=== PATIENT | female | born 1965 | race Caucasian/White ===

== ENCOUNTER → 2018-03-26 15:25 | Outpatient (CLI) | payer OTHER, SELFPAY ==
[2018-03-26 18:30] LABS: TSH (W/Ref FT4) 2.03 uIU/mL (0.358-3.74)
== END ==
PROVIDERS: PCP Family Medicine; Visit Provider Family Medicine
DX: R63.5 Abnormal weight gain (principal); R63.8 Other symptoms and signs concerning food and fluid intake
CPT/HCPCS: 36415; 84443

== ENCOUNTER 2018-05-13 15:52 | Outpatient (REF) | payer OTHER, SELFPAY ==
--- NOTE | 2018-05-13 15:00 | PAPFT_PTH ---
PATIENT: Vannesa Macias LOC: N U#:[id number] AGE/SX: 53/F ROOM: RE05/13/[address]: MICHAEL Salcedo : 1965 BED: DIS: 05/13/2018 SPEC #: [id number] RECD: 05/13/18 17:58 STATUS: KIMI RELola #: [id number] WILFREDO: 05/13/18 15:[address]: Tiana Cantu DEPT: [facility] Cytology RECD BY: Winnie Herr ENTERED: 05/13/18 17:58 SP TYPE: PAPFT JUAN RAMON DR: Randall Milligan MD Tissues: 1 - CX/ENDOCX FOR PAP SMEARS Procedures: PAP THIN PREP/UVM Screening HPV DNA PROBE Comments: [id number]
== END 2018-05-13 16:12 ==
LOC: LBN 15:52
PROVIDERS: PCP Family Medicine; Visit Provider Nurse Practitioner Family
DX: Z12.4 Encounter for screening for malignant neoplasm of cervix (principal); Z11.51 Encounter for screening for human papillomavirus (HPV)
CPT/HCPCS: 88142; 87624

== ENCOUNTER 2019-08-04 19:50 | Outpatient (REF) | payer OTHER, SELFPAY | END 2019-08-04 20:10 | LOC: LBN 19:50 | PROVIDERS: PCP Family Medicine; Visit Provider Nurse Practitioner | DX: R10.9 Unspecified abdominal pain (principal) | CPT/HCPCS: 87077; 87086; 87186 ==

== ENCOUNTER 2019-08-11 02:55 | Outpatient (CLI) | payer OTHER, SELFPAY ==
[2019-08-11 08:06] LABS: HCT 39.3 % (36.0-46.0); Mean Corp. HGB Concentration 33.1 g/dL (32.0-36.0); Mean Corpuscular Hemoglobin 31.1 pg (27.0-33.0); Mean Platelet Volume 10.5 fL (8.0-11.0); Platelet Count 250 x1000/uL (130-400); RBC 4.18 m/cumm (4.00-5.20); RBC Distribution Width 12.7 % (11.7-14.6); White Blood Cell Count 6.24 k/cumm (4.4-10.8)
--- NOTE | 2019-08-11 08:07 | DI.US_ITS ---
EXAM: US PELVIS TRANSVAGINAL CLINICAL HISTORY: PELVIC PAIN, CHRONIC, R10.2, G89.29 TECHNIQUE: Ultrasound of the pelvic, both abdmonal and tranvaginal was performed using standard prot ocol. COMPARISON: No priors for comparison FINDINGS: KIDNEYS: Kidneys are symmetric in size. No evidence of renal calculi. No evidence of hydronephrosis. No renal mass or cyst identified. UTERUS: Position: Anteverted. Size: 5.9 long by 2.5 AP by 4.4 transverse cm Endometrium: 0.3 cm. Normal for patient's menstrual status. Myometrium: Unremarkable. Cervix: Nabothian cyst. Otherwise unremarkable. OVARIES: Right: 1.6 x 1.1 x 0.9 cm Cyst or mass: None. Left: 1.5 x 0.8 x 0.9 cm Cyst or mass: None. DOPPLER: Color: Symmetric and uniform flow to both ovaries. No hyperemia. Duplex: Normal ovarian arterial waveforms visualized. CUL-DE-SAC: Free fluid: None. IMPRESSION: 1. Normal sonographic appearance of the kidneys. 2. Normal-appearing uterus with endometrial stripe within normal limits. 3. Unremarkable bilateral ovaries.
== END 2019-08-11 03:15 ==
PROVIDERS: PCP Family Medicine; Visit Provider Nurse Practitioner
DX: R10.2 Pelvic and perineal pain (principal); G89.29 Other chronic pain
CPT/HCPCS: 36415; 85027; 76830; 76856

== ENCOUNTER 2020-04-05 10:05 | Outpatient (CLI) | payer OTHER, SELFPAY ==
--- NOTE | 2020-04-05 15:55 | DI.RAD_ITS ---
EXAM: XR SHOULDER RT COMPLETE 2+V CLINICAL HISTORY: Acute right shoulder pain. ?Fx/Dislocation m25.511 pain rt shoulder TECHNIQUE: 2D digital imaging was performed. COMPARISON: No exams were available for comparison FINDINGS: The humeral head is normally positioned in relation to the glenoid. There are bony densities seen ad jacent to the greater tuberosity which could represent small fracture fragments versus calcific tendi nitis. There is mild spurring at the glenoid and AC joint. IMPRESSION: Question of a Hill-Sachs fracture of the posterior superior humeral head versus calcific tendinosis.
--- NOTE | 2020-04-05 16:18 | DI.VRAD_ITS ---
PROCEDURE INFORMATION: Exam: XR Right Shoulder Exam date and time: 04/05/2020 3:56 PM Age: 55 years old Clinical indication: Other: Acute right shoulder pain. ? Fx/dislocation m25.511 pain RT shoulder TECHNIQUE: Imaging protocol: XR Right shoulder. Views: 2 or more views. COMPARISON: No relevant images were readily available for comparison purposes. FINDINGS: Bones/joints: A Hill-Sachs lesion is noted along the humeral head with suspected associated mildly displaced bony fragments best seen on the scapular Y-view. There is some irregularity along the inferior aspect of the glenoid which could represent a Bankart deformity. Lungs: Linear like atelectasis at the right lung base. Visualized lung is otherwise clear. Soft tissues: Unremarkable. 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 Dictated and Authenticated by: Rik Roque MD. Ordering:JAZ Lizama MD
== END 2020-04-05 10:25 ==
PROVIDERS: PCP Nurse Practitioner; Visit Provider Nurse Practitioner Family
DX: S42.291A Other displaced fracture of upper end of right humerus, initial encounter for closed fracture (principal)
CPT/HCPCS: 73030

== ENCOUNTER 2020-04-18 02:19 | Outpatient (CLI) | payer OTHER, SELFPAY ==
--- NOTE | 2020-04-18 07:15 | DI.MRI_ITS ---
EXAM: MR UPPER JOINT RT WO CLINICAL HISTORY: Acute traumatic shoulder weakness/pain, RT SHOULDER PAIN, M25.511. TECHNIQUE: Multiplanar multisequence MRI was performed. COMPARISON: CR,XR XR SHOULDER RT COMPLETE 2+V from 04/05/2020 FINDINGS: BONES: There is no fracture. In the humeral head, there is an area of for intense signal on the T2 w eighted images and hypointense signal on the T1 weighted images. There is no associated cortical abn ormality or soft tissue mass. This likely reflects a benign lesion such as a contusion, bone infarct or enchondroma. JOINTS: Mild degenerative changes of the acromioclavicular joint. The glenohumeral joint is normal. TENDONS: Supraspinatus: There is a small full-thickness tear of the supraspinatus tendon at its insertion onto the greater tuberosity. Infraspinatus: There is tendinosis of the infraspinatus tendon. Subscapularis: Tendinosis of the subscapularis tendon. Teres Minor: Unremarkable. Biceps and Shelton: Unremarkable. MUSCLES: Unremarkable. GLENOID LABRUM: Unremarkable on this noncontrast examination. SOFT TISSUES: Unremarkable. LIGAMENTS: Unremarkable. OTHER: Small amount of fluid in the subacromial subdeltoid bursa. IMPRESSION: 1. Small full-thickness tear of the supraspinatus tendon. 2. Tendinosis of the infraspinatus and subscapularis tendons. 3. Small possible contusion involving the humeral head. No fracture is identified. DATA REPOSITORY:
== END 2020-04-18 02:39 ==
PROVIDERS: PCP Nurse Practitioner; Visit Provider Nurse Practitioner Family
DX: S46.011A Strain of muscle(s) and tendon(s) of the rotator cuff of right shoulder, initial encounter (principal); M75.91 Shoulder lesion, unspecified, right shoulder; S40.011A Contusion of right shoulder, initial encounter
CPT/HCPCS: 73221

== ENCOUNTER 2020-04-26 12:10 | Outpatient (CLI) | payer OTHER, SELFPAY ==
--- NOTE | 2020-04-26 11:45 | DI.RAD_ITS ---
EXAM: XR SHOULDER RT COMPLETE 2+V INDICATION: right shoulder injury. COMPARISON: MR MR UPPER JOINT RT WO from 04/18/2020 TECHNIQUE: 2D digital imaging was performed. FINDINGS: There is mild spurring at the AC joint and glenoid. The glenohumeral joint space is well maintained. There is a calcification adjacent to the superior aspect of the humeral head, consistent with calci fic tendinosis. IMPRESSION: Mild degenerative changes and calcific tendinosis. DATA REPOSITORY: RADIATION DOSE DELIVERED:
== END 2020-04-26 12:30 ==
PROVIDERS: PCP Nurse Practitioner; Referring Provider Nurse Practitioner; Visit Provider Student in an Organized Health Care Education/Training Program
DX: M19.011 Primary osteoarthritis, right shoulder (principal); M75.31 Calcific tendinitis of right shoulder
CPT/HCPCS: 73030

== ENCOUNTER 2020-06-14 11:56 | Outpatient (REF) | payer OTHER, SELFPAY ==
--- NOTE | 2020-06-14 09:15 | PAPFT_PTH ---
PATIENT: Vannesa Macias LOC: [place] U#:[id number] AGE/SX: 55/F ROOM: RE06/14/[address]: Ira Art NP : 1965 BED: DIS: 06/14/2020 SPEC #: [id number] RECD: 06/14/20 13:01 STATUS: KIMI CORNEJO #: [id number] WILFREDO: 06/14/20 09:[address]: Ira Art NP DEPT: [facility] Cytology RECD BY: Winnie Herr ENTERED: 06/14/20 13:01 SP TYPE: PAPFT OTHR DR: Mikki Choi, PhD PRESCHOOL ADVISER Tissues: 1 - CX/ENDOCX FOR PAP SMEARS Procedures: PAP THIN PREP/UVM Screening Comments: [id number] ([facility])
== END 2020-06-14 12:16 ==
LOC: LBN 11:56
PROVIDERS: PCP Nurse Practitioner; Visit Provider Nurse Practitioner Women's Health
DX: Z12.4 Encounter for screening for malignant neoplasm of cervix (principal)
CPT/HCPCS: 88142

== ENCOUNTER 2020-06-17 07:14 | Day surgery (SDC) | payer OTHER, SELFPAY ==
[2020-06-17 07:20] VITALS: BP 107/70; PULSE 73; RESP 18; TEMP 36.5; O2SAT 97
[2020-06-17] MEDS: Lactated Ringers 1,000 ML 80 ML IV (07:42)
--- NOTE | 2020-06-17 07:55 | W.PM.DSUDISC ---
Discharge Plan Disposition Patient Disposition: HOME Condition: Good Discharge Details Reason For Visit: Colonoscopy Attending Provider: Glenys Bowles Primary Care Provider: Mikki Choi Home Meds and New Rx's Prescriptions: Continued sumatriptan succinate [Imitrex] 100 mg tablet 100 mg PO PRN Qty: 18 RF: 3 Discontinued polyethylene glycol 3350 17 gram/dose powder 238 g PO ONCE Qty: 238 RF: 0 bisacodyl [Dulcolax (bisacodyl)] 5 mg tablet,delayed release (DR/EC) 5 mg PO ONCE Qty: 4 RF: 0 Discharge Instructions Additional Instructions: Findings: One small polyp was removed. My office will contact you with biopsy results. Follow up: Plan for colonoscopy in 5 years. Please call if you develop: fevers >101.5 Nausea or Vomiting Abdominal pain that is not transient DAY SURGERY UNIT POST COLONOSCOPY INSTRUCTIONS 1. Because there will be medication in your system for the next 24 hours, you may feel a little sleepy. Your coordination will be affected. Therefore: a. Do not drive or operate dangerous equipment for 24 hours. b. Do not drink alcohol beverages for 24 hours (not even beer). c. Plan to go home and rest for the day. 2. Generally there are no restrictions on your activity after a day or so has gone by, but you may feel a bit fatigued for a few days. 3 After you arrive home you may have a light meal and return to a normal diet as you can tolerate it without feeling sick to your stomach. 4. After surgery, you may feel pain or discomfort. This should be only transient, but if it persists please contact your doctor. 5. If there are any questions regarding the findings of your procedure, please feel free to contact your doctor. 6. If you are unable to contact your doctor with a problem, contact the hospital at [phone]. 7. Continue all your regular medications unless directed otherwise. I understand the above instructions and have no questions. Signature of Patient or Responsible Adult Escort Date/Time Name of Responsible Adult Escort Signature of Nurse Date/Time Activity:: Activity as Tolerated Diet:: As Tolerated Discharge Orders Discharge Orders: Discharge Order (Routine); Ordered 06/17/20 Ordered By: Glenys Bowles DS: Diagnosis Discharge Diagnosis (1) Colon polyp: Status: Acute
--- NOTE | 2020-06-17 07:56 | W.COLOREPORT ---
Date of service: 06/17/20 Time of Service: 09:00 Colonoscopy Report Date of procedure: 06/17/20 Pre-op diagnosis general: FH colon cancer Post-op diagnosis procedure note: other (Descending colon polyp, diverticulosis) Procedure: Colonoscopy with cold forceps polypectomy Surgeon: Glenys Bowles Anesthesia proc note operative: MAC Indications: This 55 year old woman presents for colonoscopy. Her prior in 2013 was normal. Her father was treated for colon cancer. Procedure Description: The patient was placed in the left Blum position. Propofol was titrated to sedation. Digital rectal examination revealed no abnormalities. The scope was advanced to the cecum without difficulty. The ileocecal valve and appendiceal orifice were clearly identified. The prep was good. The scope was slowly withdrawn over the course of greater than 6 minutes with no abnormalities seen in the ascending, transverse colon. A diminuitive polyp was removed with the cold forceps from the descending colon. The sigmoid colon and rectum were normal including on retroflexed view. She was also noted to have a few diverticulosis pockets scattered throughout the colon including on the right. The patient tolerated the procedure well and was stable to recovery. Plan for colonoscopy in 5 years or sooner if symptoms indicate.
--- NOTE | 2020-06-17 08:31 | BOWEL_PTH ---
PATIENT: Vannesa Macias LOC: [facility] U#:[id number] AGE/SX: 55/F ROOM: RE06/17/[address]: Glenys Bowles MD : 1965 BED: DIS: 06/17/2020 SPEC #: [id number] RECD: 06/17/20 12:54 STATUS: KIMI REQ #: [id number] WILFREDO: 06/17/20 08:[address]: Glenys Bowles DEPT: Surgical Specimen RECD BY: Winnie Herr ENTERED: 06/17/20 12:54 SP TYPE: Bowel OTHR DR: Mikki Choi, PhD WAREHOUSE ORDER PICKER Tissues: 1 - BIOPSY BOWEL Procedures: GROSS AND MICRO LEVEL 4 Comments: [id number] ([facility]#)
[2020-06-17 09:10] VITALS: BP 90/58; PULSE 60; RESP 18; TEMP 36.4; O2SAT 98
== END 2020-06-17 09:35 | disposition home or self-care (01) ==
PROVIDERS: PCP Nurse Practitioner; Visit Provider Surgery
PROC: 0DJD8ZZ Inspection of Lower Intestinal Tract, Via Natural or Artificial Opening Endoscopic (ICD-10-PCS; CPT 45378; principal; 2020-06-17 08:15)
DX: Z12.11 Encounter for screening for malignant neoplasm of colon (principal); Z80.0 Family history of malignant neoplasm of digestive organs; K57.30 Diverticulosis of large intestine without perforation or abscess without bleeding; K63.5 Polyp of colon
CPT/HCPCS: 45380; 88305

== ENCOUNTER 2020-07-04 03:16 | Outpatient (CLI) | payer OTHER, SELFPAY ==
[2020-07-05 11:24] LABS: SARS-CoV-2 RNA Not Detected (NotDetected); SARS-CoV-2 RNA Source Nasal/Nares
== END 2020-07-04 03:36 ==
PROVIDERS: Nurse Practitioner Family; PCP Nurse Practitioner; Visit Provider Nurse Practitioner
DX: Z20.828 Contact with and (suspected) exposure to other viral communicable diseases (principal)
CPT/HCPCS: U0003

== ENCOUNTER 2020-07-12 02:45 | Outpatient (CLI) | payer OTHER, SELFPAY ==
[2020-07-14 11:16] LABS: SARS-CoV-2 RNA Not Detected (NotDetected); SARS-CoV-2 RNA Source Nasal/Nares
== END 2020-07-12 03:05 ==
PROVIDERS: PCP Nurse Practitioner; Visit Provider Nurse Practitioner
DX: Z11.59 Encounter for screening for other viral diseases (principal)
CPT/HCPCS: U0003

== ENCOUNTER 2021-04-20 03:36 | Outpatient (CLI) | payer OTHER, SELFPAY ==
[2021-04-20 08:25] LABS: Hemoglobin A1C 6.1 % (<5.7)
== END 2021-04-20 03:37 | disposition home or self-care (01) ==
LOC: LBO 03:36
PROVIDERS: PCP Nurse Practitioner; Visit Provider Nurse Practitioner
DX: Z13.1 Encounter for screening for diabetes mellitus (principal)
CPT/HCPCS: 36415; 83036

== ENCOUNTER 2022-04-20 01:45 | Outpatient (CLI) | payer OTHER, SELFPAY ==
[2022-04-20 12:40] LABS: Hemoglobin A1C 6.1 % (<5.7)
[2022-04-20 12:44] LABS: Anion Gap 10.6 mmol/L (3-11); BUN 20 mg/dL (7-18); CO2 30.4 mmol/L (21.0-32.0); CREATININE 0.7 mg/dL (0.55-1.02); Calcium 8.9 mg/dL (8.5-10.1); Calculated LDL 160 mg/dL (<100); Chloride 105 mmol/L (98-107); Cholesterol 231 mg/dL (<200); Estimated GFR 100.19 (mL/min/1.73m2); Glucose 93 mg/dL (74-106); HDL Cholesterol 62 mg/dL (40-60); Potassium 3.3 mmol/L (3.5-5.1); Sodium 146 mmol/L (136-145); Triglyceride 45 mg/dL (<150)
== END 2022-04-20 01:46 | disposition home or self-care (01) ==
LOC: LOS 01:45
PROVIDERS: PCP Nurse Practitioner; Visit Provider Nurse Practitioner Family
DX: R73.03 Prediabetes (principal); R79.89 Other specified abnormal findings of blood chemistry
CPT/HCPCS: 36415; 80048; 80061; 83036

== ENCOUNTER 2022-12-17 08:19 | Outpatient (CLI) | payer OTHER, SELFPAY ==
[2022-12-17 12:20] LABS: Abs Immature Grans 0.02 10^3/uL (0.0-0.06); Absolute Basophil Count 0.04 10^3/uL (0.0-0.2); Absolute Eosinophil Count 0.11 10^3/uL (0.0-0.7); Absolute Lymphocyte Count 2.15 10^3/uL (1.2-3.4); Absolute Monocyte Count 0.48 10^3/uL (0.1-0.8); Absolute Neutrophil Count 4.29 10^3/uL (1.2-6.7); Basophils % 0.6; Eosinophils % 1.6; HCT 42.2 % (36.0-46.0); HGB 13.5 g/dL (11.2-15.7); Immature Grans % 0.3; Lymphocytes % 30.3; MCH 31.1 pg (27.0-33.0); MCV 97 fL (80-95); MPV 10.8 fL (8.0-11.0); Monocytes % 6.8; Neutrophils % 60.4; Platelet Count 276 10^3/uL (130-400); RBC 4.34 10^6/uL (3.93-5.22); RDW 12.5 % (11.7-14.6); RDW-SD 44.7 fL; WBC 7.09 10^3/uL (4.4-10.8)
[2022-12-17 12:35] LABS: ALT 27 U/L (14-59); AST 16 U/L (15-37); Albumin 3.7 g/dL (3.4-5.0); Alkaline Phosphatase 96 U/L (46-116); Anion Gap 7.2 mmol/L (3-11); BUN 16 mg/dL (7-18); Bilirubin, Total 0.3 mg/dL (0.2-1.0); CO2 29.8 mmol/L (21.0-32.0); CREATININE 0.8 mg/dL (0.55-1.02); Chloride 106 mmol/L (98-107); Estimated GFR 85.35 (mL/min/1.73m2); Glucose 95 mg/dL (74-106); Sodium 143 mmol/L (136-145); Total Protein 7.2 g/dL (6.4-8.2)
== END 2022-12-17 08:20 | disposition home or self-care (01) ==
PROVIDERS: PCP Nurse Practitioner Family; Referring Provider Nurse Practitioner Family; Visit Provider Nurse Practitioner Family
DX: R10.32 Left lower quadrant pain (principal)
CPT/HCPCS: 36415; 80053; 85025

== ENCOUNTER 2023-01-03 12:07 | Outpatient (CLI) | payer OTHER, SELFPAY ==
--- NOTE | 2023-01-03 10:45 | DI.RAD_ITS ---
Exam(s) XR ANKLE RT COMPLETE EXAM: XR ANKLE RT COMPLETE CLINICAL HISTORY: pain with wt bearing post inversion injury, m25.571. TECHNIQUE: 2D digital imaging was performed of the right ankle. Three images were obtained. AP, la teral and oblique views were obtained. COMPARISON: No exams were available for comparison FINDINGS: BONES: No acute fracture is present. No bony destructive lesion is seen. There is an enthesophyte at the posterior calcaneus. JOINTS: The ankle mortise is normally aligned. SOFT TISSUE: Normal. IMPRESSION: Unremarkable radiographs of the right ankle. DATA REPOSITORY: RADIATION DOSE DELIVERED:
== END 2023-01-03 12:27 ==
PROVIDERS: PCP Nurse Practitioner Family; Visit Provider Nurse Practitioner Family
DX: M25.571 Pain in right ankle and joints of right foot (principal)
CPT/HCPCS: 73610

== ENCOUNTER 2023-05-14 02:10 | Outpatient (CLI) | payer OTHER, SELFPAY ==
[2023-05-14 12:32] LABS: Anion Gap 8.8 mmol/L (3-11); BUN 22 mg/dL (7-18); CO2 28.2 mmol/L (21.0-32.0); CREATININE 0.8 mg/dL (0.55-1.02); Calcium 9.5 mg/dL (8.5-10.1); Calculated LDL 151 mg/dL (<100); Chloride 102 mmol/L (98-107); Cholesterol 231 mg/dL (<200); Estimated GFR 84.82 (mL/min/1.73m2); Glucose 109 mg/dL (74-106); HDL Cholesterol 62 mg/dL (40-60); Potassium 3.6 mmol/L (3.5-5.1); Sodium 139 mmol/L (136-145); Triglyceride 93 mg/dL (<150)
[2023-05-14 12:37] LABS: Hemoglobin A1C 5.7 % (<5.7)
== END 2023-05-14 02:11 | disposition home or self-care (01) ==
LOC: LOS 02:16
PROVIDERS: PCP Nurse Practitioner Family; Visit Provider Nurse Practitioner Family
DX: Z00.00 Encounter for general adult medical examination without abnormal findings (principal); R73.03 Prediabetes; E78.5 Hyperlipidemia, unspecified; F32.89 Other specified depressive episodes; E66.8 Other obesity
CPT/HCPCS: 36415; 80048; 80061; 83036

== ENCOUNTER 2023-05-29 08:34 | Outpatient (REF) | payer OTHER, SELFPAY ==
--- NOTE | 2023-05-29 08:20 | PAPFT_PTH ---
PATIENT: Vannesa Macias LOC: [place] U#:[id number] AGE/SX: 58/F ROOM: RE05/29/[address]: Ira Art NP : 1965 BED: DIS: 05/29/2023 SPEC #: [id number] RECD: 05/29/23 13:16 STATUS: KIMI RELola #: [id number] WILFREDO: 05/29/23 08:[address]: Rubens POSADAS,Ira DEPT: [facility] Cytology RECD BY: Winnie Herr ENTERED: 05/29/23 13:16 SP TYPE: PAPFT OTHR DR: Roxy Calderon, PERSONNEL COUNSELOR Tissues: 1 - CX/ENDOCX FOR PAP SMEARS Procedures: PAP THIN PREP/UVM Screening HPV DNA PROBE Comments: [id number]
== END 2023-05-29 08:35 | disposition home or self-care (01) ==
LOC: LBN 08:34
PROVIDERS: PCP Nurse Practitioner Family; Visit Provider Nurse Practitioner Women's Health
DX: Z12.4 Encounter for screening for malignant neoplasm of cervix (principal); Z11.51 Encounter for screening for human papillomavirus (HPV)
CPT/HCPCS: 88142; 87624

== ENCOUNTER 2023-07-31 08:15 | Day surgery (SDC) | payer OTHER, SELFPAY ==
[2023-07-31] VITALS (15 sets, daily range): BP systolic 99–133; BP diastolic 53–87; PULSE 60–93; RESP 12–21; TEMP 36.2–36.6; O2SAT 93–100; BMI 27.6
--- NOTE | 2023-07-31 07:01 | PGE_ITS ---
Date of Service Date of service: 07/31/23 Time of Service: 10:04 Assessment and Plan Assessment and plan (1) Bilateral inguinal hernia without obstruction or gangrene: Status: Acute Assessment and plan: Ms. Macias is a pleasant 58-year-old female who comes in today to have open bilateral inguinal hernia repairs with mesh. I reviewed the pathophysiology of hernias as well as the procedure. We reviewed the possible risks, benefits and complications. After conversation she seemed to have a good understanding of both the procedure and the possible complications and she did not have any more questions and signed the consent to proceed. Risks, benefits and complications have been reviewed. Complications include but are not limited to bleeding, infection, injury to vas, vessels and nerves, injury to bowel, recurrence (3- 5%), chronic pain and adverse reaction to medications. Questions were entertained and answered to their satisfaction and they wished to proceed. We will also have anesthesia do a bilateral TAP block to help with postoperative pain. Qualifiers: Recurrence: non-recurrent Qualified Code(s): K40.20 - Bilateral inguinal hernia, without obstruction or gangrene, not specified as recurrent Subjective Subjective Interval history since last seen: Mrs Macias is a pleasant 58 year old female who was seen by Dr. Merino in the office for abdominal pain. CT scan was reviewed which showed small bilateral inguinal hernias. Hernia repair was recommended to try and see if that is where her pain is coming from. The patient is here today for that. I have seen her in same-day surgery. We reviewed the procedure again in detail as well as the possible complications and postoperative activity restrictions. Since she was seen in the office she has not developed any upper respiratory infections. She does not have any chest pain or shortness of breath. She has not had any issues with anesthesia in the past. Her past medical history significant for depression, hyperlipidemia migraines and prediabetes. Exam Const General: cooperative, comfortable and no acute distress Nutritional Appearance: average body habitus Orientation: alert and oriented x3 HENMT Head: normocephalic and atraumatic Resp Effort & Inspection: normal respiratory effort Auscultation: clear to auscultation bilaterally Cardio Rate: regular rate Rhythm: regular rhythm GI Inspection: normal to inspection Palpation: soft, no hepatosplenomegaly, hernia (bilateral small inguinal hernias) and nontender Time Spent with Patient Time Spent with Patient: <25 minutes Time was spent: counseling the patient
--- NOTE | 2023-07-31 07:02 | W.PM.OP ---
Date of service: 07/31/23 Time of Service: 12:33 Operative Note Operative Note DATE OF PROCEDURE: 07/31/23 PRE-OP DIAGNOSIS: Bilateral inguinal hernias POST-OP DIAGNOSIS: same PROCEDURE: Bilateral inguinal hernia repair with mesh SURGEON: Leticia Gutierres MINE EQUIPMENT DESIGN ENGINEER: Nancy Matais ANESTHESIA TYPE: Local By Surgeon, General LMA/ETT and Primary Nerve Block Refer to Anesthesia Record ESTIMATED BLOOD LOSS: 10 PATHOLOGY: none sent COMPLICATIONS: None Patient was transported to: PACU Patient's condition: stable Implants: PerFix Light Plug (Right): REF- [id number] LOT- [id number] - 2026-07-16 PerFix Light Plug (Left): REF- [id number] LOT- [id number] - 2027-11-14 Indications: Ms. Macias is a pleasant 58-year-old female who comes in today to have open bilateral inguinal hernia repairs with mesh. I reviewed the pathophysiology of hernias as well as the procedure. We reviewed the possible risks, benefits and complications. After conversation she seemed to have a good understanding of both the procedure and the possible complications and she did not have any more questions and signed the consent to proceed. Risks, benefits and complications have been reviewed. Complications include but are not limited to bleeding, infection, injury to vas, vessels and nerves, injury to bowel, recurrence (3-5%), chronic pain and adverse reaction to medications. Questions were entertained and answered to their satisfaction and they wished to proceed. Findings: BIlateral indirect and direct hernia. Indirect hernia on the right had preperitoneal fat, Left hernia had preperitoneal fat and a hernia sac. Procedure Description: After informed consent was obtained the patient was taken to the operating room and placed in a supine position. Monitors and SCDs were applied and a timeout was done. The patient's name, date of , procedure type, procedure site, allergies to medications, preoperative antibiotic, and DVT prophylaxis were all reviewed. Fire risk was assessed. Next anesthesia did a tap block on both sides under ultrasound guidance. Please see their separate dictation. Once anesthesia was done the abdomen was prepped and draped in a sterile surgical fashion. 0.5% Marcaine was injected into the dermis in the right lower quadrant. An incision was made with a 10 blade in the right lower quadrant. Dissection was done with cautery through the subcutaneous tissues and Calvin's fascia down to the external oblique fascia. The external ring was identified and the external oblique fascia was opened sharply through the external ring. The cut fascia was grasped with hemostats the cord structures were identified and a [place] drain was placed around them. The ilioinguinal nerve was identified and cut. An indirect hernia was identified with preperitoneal fat coming through it. Some of the fat was resected with cautery and the rest was reduced. An Medium plug was placed into the indirect defect and secured with 2-0 proline. A flat piece of mesh was then attached to the lacunar ligament using a 2-0 Prolene double armed suture. The mesh was secured laterally and medially with a 2-0 Prolene, with a running suture. Once the mesh was secured the tissues were irrigated with some normal saline. No bleeding was identified. The external oblique fascia was reapproximated using 2-0 Vicryl running suture. The Calvin's fascia was reapproximated using interrupted 3-0 Vicryl. The dermis was reapproximated with a running 4-0 Vicryl. Next attention was given to the left side. 0.5% Marcaine was injected into the dermis in the left lower quadrant. An incision was made with a 10 blade in the right lower quadrant. Dissection was done with cautery through the subcutaneous tissues and Calvin's fascia down to the external oblique fascia. The external ring was identified and the external oblique fascia was opened sharply through the external ring. The cut fascia was grasped with hemostats the cord structures were identified and a Shane drain was placed around them. The ilioinguinal nerve was identified and cut. A small hernia sac was identified, as well as some fat. The hernia sac was suture ligated and amputated. The remnant as well as the fat was reduced back into the peritoneum. An Medium plug was placed into the indirect defect and secured with 2-0 proline. A flat piece of mesh was then attached to the lacunar ligament using a 2-0 Prolene double armed suture. The mesh was secured laterally and medially with a 2-0 Prolene, with a running suture. Once the mesh was secured the tissues were irrigated with some normal saline. No bleeding was identified. The external oblique fascia was reapproximated using 2-0 Vicryl running suture. The Calvin's fascia was reapproximated using interrupted 3-0 Vicryl. The dermis was reapproximated with a running 4-0 Vicryl. The skin was cleaned and dried and skin affix was applied. The patient was woken up and taken back to recovery in stable condition. There were no immediate complications. Sponge, instrument and needle counts were correct at the end of the case x2.
--- NOTE | 2023-07-31 07:04 | W.PM.DSUDISC ---
Date of service: 07/31/23 Time of Service: 16:43 Discharge Plan Disposition Patient Disposition: Home Condition: Stable Discharge Details Reason For Visit: Bilateral inguinal hernia Attending Provider: Letciia Gutierres Primary Care Provider: Roxy Calderon Home Meds and New Rx's Prescriptions: New tramadol 50 mg tablet 50 mg PO Q6H PRNQty: 14 0RF Continued diclofenac sodium [Arthritis Pain (diclofenac)] 1 % gel 4 g topical QID Qty: 100 3RF Rx Instructions: Apply to top of feet up to 4 times day a day if needed for pain fluoxetine 40 mg capsule 40 mg PO DAILY Qty: 90 3RF sumatriptan succinate [Imitrex] 100 mg tablet 100 mg PO PRN Qty: 18 3RF Rx Instructions: max dose 100mg/day, not to exceed twice weekly phentermine 37.5 mg capsule 37.5 mg PO DAILY Qty: 90 3RF Discharge Instructions Additional Instructions: Activity at Home after surgery: 1. Make sure you walk outside at least 4 times per day 2. You should be able to climb a flight of stairs 3. No driving while in pain or taking pain medications 4. No strenuous activity or heavy lifting for 4 weeks (open surgery) Diet, Nutrition, & wound healin. Avoid alcohol until after you are recovered from your surgery 2. Make sure to eat plenty of lean protein (meat, fish, eggs, cottage cheese, beans) 3. Eat a variety of fruits and vegetables. Eat plenty of high fiber foods to avoid constipation. 4. Drink plenty of liquids to stay hydrated and avoid constipation Pain Medications: 1. Tylenol 650mg every 6 hours as needed and Ibuprofen 600 mg every 6 hours as needed. You may alternate between the 2 medications every 3 hours 2. If a narcotic has been prescribed take as directed only for breakthrough pain For Constipation: 1. Take Milk of Magnesia or MiraLax as needed for constipation Other: 1. You may shower daily. Do not scrub the incisions 2. Do not soak the incisions for 1 week 3. You may alternate ice and heat as needed for pain and swelling Wound Care: 1. Keep the incisions clean and dry Please call our office if you develop: 1. Fevers >101.5 2. Nausea or Vomiting 3. Worsening pain 4. Redness and thick discharge from the wounds If after hours please call the Hospital at and ask to speak to the on-call surgeon Stand Alone Forms: Anesthesia Discharge InstIraj Saavedra (DSU) Referrals: Leticia Gutierres MD [ [facility] STAFF PHYSICIAN] - Activity:: as above Shower/Bathe:: 24 hours Diet:: As Tolerated Discharge Orders Discharge Orders: Discharge Order (Routine); Ordered 07/31/23 Ordered By: Leticia Gutierres DS: Diagnosis Discharge Diagnosis (1) Bilateral inguinal hernia without obstruction or gangrene: Status: Acute Asessment and Plan: The patient is doing well post-op from her bilateral inguinal hernia repair surgery.? She is having no nausea or vomiting. She has tolerated liquids and a snack. The pt is not having any chest pain or SOB.? Her pain is adequately controlled. She has been able to urinate.? ?HEENT:? no eye pain/drainage/redness/swelling. Mild sore throat ?Cardio- NSR, no chest pain, BP stable- see VS record ?Pulm: no sob or productive cough. No hemoptysis ?Incision- dressing is c/d/i w/ no excessive bleeding or drainage ?I discussed with the patient the findings at the time of surgery and the patient?s progress. ?We reviewed expectations at home; what the patient could expect for recovery time, and in the post-operative period.? We discussed the importance of walking to avoid blood clots and pneumonia.? We discussed and reviewed the patient's post-operative wound care and dressing needs.?? We reviewed their step-du pain management plan, Rx called to the pharmacy of their choice.? We reviewed activity and limitations-see discharge instructions. We reviewed warning signs, and when to seek medical attention- see d/c instructions.?? Patient was given a postoperative follow-up appointment. Patient verbalized understanding of their postoperative instructions, how do to take care of themselves and their incision, and the pain management plan. Please see discharge instructions.?
[2023-07-31] MEDS: Gabapentin 300 MG CAP 600 MG PO (09:08)
[2023-07-31] MEDS: Acetaminophen 500 MG TAB 1000 MG PO (09:09)
[2023-07-31] MEDS: Lactated Ringers 1,000 ML 80 ML IV (09:09)
--- NOTE | 2023-07-31 10:35 | W.ANESPRE ---
General Info Date of Service Date Performed: 07/31/23 Height: 4 ft 11.5 in Weight: 63 kg Body Mass Index (BMI): 27.6 Surgical Procedure: Operation Date: 07/31/23 10:40 Proposed Procedure Side Surgeon p Herniorrhaphy Inguinal w/Mesh- Bilateral Bilateral Leticia Gutierres MD Meds Allergies and Home Medications Allergies Allergy/AdvReac Type Severity Reaction Status Date / Time hydrocodone AdvReac Intermediate nausea, Verified 07/31/23 08:46 vomiting oxycodone AdvReac Intermediate nausea, Verified 07/31/23 08:46 vomiting Home Medication Medication Instructions Recorded diclofenac sodium 1 % topical gel 4 g topical QID #100 grams 04/18/22 (Arthritis Pain (diclofenac)) fluoxetine 40 mg capsule 40 mg PO DAILY #90 tab-caps 05/09/23 sumatriptan succinate 100 mg 100 mg PO PRN #18 tab-caps 05/09/23 tablet (Imitrex) phentermine 37.5 mg capsule 37.5 mg PO DAILY #90 caps 06/06/23 Current Visit Medications: Current Medications Generic Name Dose Route Start Last Admin Trade Name Freq PRN Reason Stop Dose Admin Acetaminophen 1,000 mg 07/31/23 06:00 07/31/23 09:09 Acetaminophen 500 Mg Tab PO 08/29/23 23:59 1,000 mg PREOP YAN Administration Gabapentin 600 mg 07/31/23 06:00 07/31/23 09:08 Gabapentin 300 Mg Cap PO 08/29/23 23:59 600 mg PREOP YAN Administration Ringer's Solution 1,000 mls @ 80 mls/hr 07/31/23 06:00 07/31/23 09:09 IV 08/29/23 23:59 80 mls/hr INFUSION YAN Administration Cefazolin Sodium/Dextrose 2 gm in 50 mls @ 100 mls/hr 07/31/23 06:00 Ancef Duplex IVPB 08/29/23 23:59 PREOP YAN Ondansetron HCl 4 mg/ Sodium 52 mls @ 200 mls/hr 07/31/23 07:03 Chloride IVPB 08/30/23 07:02 Q6H PRN PRN IV Miscellaneous Supplies 1 each 07/31/23 06:00 Iv Access IV 08/29/23 23:59 DIRECTED YAN Sodium Chloride 0 ml 07/31/23 06:00 Normal Saline Flush 10 Ml Syr IV 08/29/23 23:59 PRN PRN Sodium Chloride 0 ml 07/31/23 06:00 Normal Saline 10 Ml Vial IJ 08/29/23 23:59 DIRECTED PRN Sterile Water 0 ml 07/31/23 06:00 Water,Injection,Sterile 10 Ml Vial IJ 08/29/23 23:59 DIRECTED PRN Tramadol HCl 50 mg 07/31/23 07:03 Tramadol 50 Mg Tab PO 08/30/23 07:02 Q6H PRN PRN Pain PFSH Active Problems Active Problems: Problem Status Onset Code Bilateral inguinal hernia without obstruction or gangrene K40.20 Major depressive disorder, recurrent F33.9 Hyperlipidemia E78.5 Prediabetes R73.03 Left lower quadrant abdominal pain R10.32 Obesity E66.9 Stress incontinence N39.3 Migraine G43.909 Colon, diverticulosis K57.30 History of tobacco use Z87.891 Medical History Medical History Family history of colon cancer in father Tubular adenoma of colon On 2019 colonoscopy History of abnormal cervical Pap smear ASCUS-; DEACON I ; colposcopy 08/19; cryo 01/17 Surgical History Surgical History S/P tubal ligation S/P appendectomy S/P shoulder surgery Left neer acromioplasty History of augmentation of both breasts S/P colonoscopy S/P excision of lipoma History of esophagogastroduodenoscopy Tobacco Smoking/Tobacco Use Status: Former Tobacco Use Passive smoking exposure: Yes Second hand exposure: Yes Alcohol Alcohol Intake: current Alcohol intake frequency: a few times a month Alcohol type: beer and wine Substance Use Substance use: Occasionally Substance use type: marijuana Prental History History 3 Para Hx # Term Pregnancies 2 Multiple births Hx # Pregnancies Ectopic pregnancies AB induced Hx Number of Living Children AB spontaneous Vital Signs and Lab Results Vital Signs Most Recent Vital Signs in EMR: Most Recent Vital Signs Temp Pulse Resp BP Pulse Ox 36.3 C L 72 16 133/87 99 07/31/23 08:30 07/31/23 08:30 07/31/23 08:30 07/31/23 08:30 07/31/23 08:30 Lab Results Blood Type / Crossmatch: No Data to Display Complete Blood Count: No Data to Display Complete Metabolic Panel: No Data to Display Liver Function Panel: No Data to Display Coagulation Panel: No Data to Display Cardiac Panel: No Data to Display Arterial Blood Gas: No Data to Display Venous Blood Gas: No Data to Display Pancreas Panel: No Data to Display Thyroid Panel: No Data to Display Infectious Disease: No Data to Display Blood Cultures: No Data to Display Toxicology Panel: No Data to Display Anesthesia Assessment and Plan Anesthesia History Personal History: No History of Anesthesia Complications Family History: No Family History of Anesthesia Complications Exercise Tolerance Exercise Tolerance: Metabolic Equivalents>4 Pertinent Negatives Pertinent Negatives: No Symptoms of GERD Cardiac & Pulmonary Exam Cardiac Exam: Normal S1/S2 Heart Sounds Pulmonary Exam: Clear Bilateral Breath Sounds Implantable Cardiac Device Does patient have a Pacemaker or an ICD?: No Airway Exam Known Difficult Airway: No Mallampati Class: 2 Mouth Opening: Normal (> 3cm) Thyromental Distance: Greater than 3 cm Neck Range of Motion: Full ROM Neck Circumference: Normal Teeth Condition: Normal Dentition ASA Classification ASA Score: ASA 2 Emergency Case?: No NPO Status NPO Status: NPO Clears >2 hours, Solids >8 hours Anesthesia Plan Resuscitation Status: Full Code Anesthesia Technique: General Anesthesia Airway Planned: Endotracheal Tube Pain Management: Surgeon and patient request nerve block Monitors Used: Standard Monitors and SedLine
[2023-07-31] MEDS: ceFAZolin 2 GM/50 ML BAG IVPB (10:56)
[2023-07-31] MEDS: Bupivacaine 0.25% Pres-Free 30 ML VIAL (11:35)
--- NOTE | 2023-07-31 11:38 | ANES.NERVE_ITS ---
Nerve Block Single Injection Procedure Date and Time Date Performed: 07/31/23 Procedure Start: 11:12 Location Where Procedure Performed Procedure Location: Operating Room Procedure Stop: :21 Reason Performed: Postoperative Analgesia Requesting Provider: Leticia Gutierres Timeout Performed Timeout Performed: Yes Monitoring Used ECG, Blood Pressure, ETCO2 and See EMR for corresponding vital signs Sterility Sterility: Hand Hygiene, Surgical Cap, Surgical Mask, Sterile Gloves, Eye P rotection and Chlorhexidine Sedation Given During Procedure Sedation Given (Indicate Dose Given): Other: Medication/Route/Dose:: GETA Patient Mental Status Patient Mental Status: Performed under general anesthesia Nerve Block 1st Nerve Block: Laterality: Bilateral Block Type: TAP Bilateral Ultrasound Image Saved?: Yes Needle / Catheter Used: 100mm SonoPlex II Local Anesthetic Bolus (Indicate Dose Given): Injected in 3-5ml increments after negative blood aspiration, Bupivacaine 0.25% Dose:: Right: 10cc/0.25% (25mg), Left 10cc/0.25% (25mg) and Exparel Dose:: Right: 10cc/1.3% (133mg), Left: 10cc/1.3% (133mg) Additives (Indicate Dose Given): Epinephrine to make 1:200,000 (5mcg/ml) Dose:: Bilat: 100mcg (1:200,000) Ultrasound: Sterile probe cover and gel used Nerve Stimulator: Not Used Paresthesia: None Procedure Tolerated: No Complications and Patient tolerated well Procedure Outcome: Successful Performed By: Heber Rios
[2023-07-31] MEDS: fentaNYL 100 MCG/2 ML VIAL IVP ×2 (13:33→13:45)
--- NOTE | 2023-07-31 14:39 | W.ANESPOSTOP ---
Postoperative Evaluation Date, Time and Location Date Performed: 07/31/23 Time Performed: 14:39 Patient Location: Day Surgery Unit Vital Signs Most Recent Imported Vital Signs: Most Recent Vital Signs Temp Pulse Resp BP Pulse Ox 36.5 C 67 14 103/58 L 94 07/31/23 14:00 07/31/23 14:00 07/31/23 14:00 07/31/23 14:00 07/31/23 14:00 Pain Score Most Recent Pain Score: Most Recent Pain Score Pain Level 5 07/31/23 14:00 Assessment Mental Status: Arousable with meaningful communication Airway and Respiratory Function: Patent airway with normal (patient baseline) respiratory exam Cardiovascular Function: Hemodynamically Stable Hydration Status: Adequately Hydrated Nausea & Vomiting: No Nausea or Vomiting Pain: Pt. Denies Any Pain Peripheral Nerve Block: Regional nerve block not resolved at time of post operative discharge
== END 2023-07-31 17:04 | disposition home or self-care (01) ==
LOC: SUR 08:15
PROVIDERS: PCP Nurse Practitioner Family; Visit Provider Surgery
PROC: (CPT 49505; principal; 2023-07-31 10:30)
DX: K40.20 Bilateral inguinal hernia, without obstruction or gangrene, not specified as recurrent (principal)
CPT/HCPCS: 49505; 76942; C1781; J0171; J0690; J1100; J2001; J2250; J2405; J2704; J3010

== ENCOUNTER 2025-06-04 09:13 | Outpatient (CLI) | payer OTHER, SELFPAY ==
[2025-06-04 09:23] LABS: Hemoglobin A1C 5.8 % (<5.7)
[2025-06-04 10:00] LABS: Anion Gap 8.7 mmol/L (3-11); BUN 31 mg/dL (7-18); CO2 28.3 mmol/L (21.0-32.0); Calcium 8.6 mg/dL (8.5-10.1); Calculated LDL 141 mg/dL (<100); Chloride 102 mmol/L (98-107); Cholesterol 220 mg/dL (<200); Estimated GFR 98.34 (mL/min/1.73m2); Glucose 87 mg/dL (74-106); HDL Cholesterol 70 mg/dL (>or=50); Potassium 3.6 mmol/L (3.5-5.1); Sodium 139 mmol/L (136-145); TSH (W/Ref FT4) 2.46 uIU/mL (0.36-3.74); Triglyceride 49 mg/dL (<150)
[2025-06-04 18:37] LABS: HBs Antibody, Quant 203.7 mIU/mL (See Note); Hepatitis B Surface Antigen Negative (Negative)
[2025-06-04 18:38] LABS: Hepatitis C Ab w Rflx HCV PCR Negative (Negative)
[2025-06-04 19:12] LABS: HIV-1/2 Ag & Ab Screen Negative (Negative)
== END 2025-06-04 09:14 | disposition home or self-care (01) ==
LOC: LBO 09:15
PROVIDERS: PCP Nurse Practitioner Family; Visit Provider Nurse Practitioner Family
DX: Z11.59 Encounter for screening for other viral diseases (principal); R73.03 Prediabetes; Z11.4 Encounter for screening for human immunodeficiency virus [HIV]; E78.5 Hyperlipidemia, unspecified
CPT/HCPCS: 36415; 80048; 80061; 86704; 86706; 86803; 87340; 87389; 83036; 84443

== ENCOUNTER 2025-07-14 09:56 | Day surgery (SDC) | payer OTHER, SELFPAY ==
[2025-07-14 10:16] VITALS: BP 102/79; PULSE 108; RESP 18; TEMP 36.5; O2SAT 99
[2025-07-14] MEDS: Lactated Ringers 1,000 ML 80 ML IV (10:35)
--- NOTE | 2025-07-14 11:27 | ANES.PREOP_ITS ---
General Info Date of Service Date Performed: 07/14/25 Height: 5 ft Weight: 54.9 kg Body Mass Index (BMI): 23.6 Surgical Procedure: Operation Date: 07/14/25 11:50 Proposed Procedure Side Surgeon p Colonoscopy Vida Ledesma MD Meds Allergies and Home Medications Allergies Allergy/AdvReac Type Severity Reaction Status Date / Time hydrocodone AdvReac Intermediate nausea, Verified 07/12/25 13:02 vomiting oxycodone AdvReac Intermediate nausea, Verified 07/14/25 10:22 vomiting Home Medication ?Medication ?Instructions ?Recorded diclofenac sodium 1 % topical gel 4 g topical QID #100 grams 05/15/24 (Arthritis Pain (diclofenac)) sumatriptan succinate 100 mg 100 mg PO PRN #18 tab-cap s 05/15/24 tablet (Imitrex) tirzepatide (weight loss) 5 mg/0.5 5 mg (0.5 mL) subcu t QWEEK #2 mL 06/11/25 mL subcutaneous pen injector bisacodyl 5 mg tablet,delayed 5 mg PO ONCE Colonoscopy Bowel 06/29/25 release Prep #4 tabs polyethylene glycol 3350 17 238 g PO ONCE #238 grams 1 08/29/24 gram/dose oral powder Current Visit Medications: Current Medications Generic Name Dose Route Start Last Admin Trade Name Freq PRN Reason Stop Dose Admin Ringer's Solution 1,000 mls @ 80 mls/hr 07/14/25 06:00 07/14/25 10:35 IV 07/14/25 23:59 80 mls/hr INFUSION YAN Administration Sodium Chloride 0 ml 07/14/25 06:00 Normal Saline Flush 10 Ml Syr IV 07/14/25 23:59 PRN PRN Sodium Chloride 0 ml 07/14/25 06:00 Normal Saline 10 Ml Vial IJ 07/14/25 23:59 DIRECTED PRN Sterile Water 0 ml 07/14/25 06:00 Water,Injection,Sterile 10 Ml Vial IJ 07/14/25 23:59 DIRECTED PRN PFSH Active Problems Active Problems: Problem Status Onset Code Major depressive disorder, recurrent Chronic F33.9 Hyperlipidemia Chronic E78.5 Prediabetes Chronic R73.03 Obesity Chronic E66.9 Stress incontinence Chronic N39.3 Migraine Chronic G43.909 Colon, diverticulosis Chronic K57.30 Medical History Medical History History of tobacco use Family history of colon cancer in father Tubular adenoma of colon On 2019 colonoscopy History of abnormal cervical Pap smear ASCUS-; DEACON I ; colposcopy 08/19; cryo 01/17 Surgical History Surgical History S/P bilateral inguinal hernia repair (07/31/23) S/P tubal ligation S/P appendectomy S/P shoulder surgery Left neer acromioplasty History of augmentation of both breasts S/P colonoscopy S/P excision of lipoma History of esophagogastroduodenoscopy Tobacco Smoking/Tobacco Use Status: Former Tobacco Use Passive smoking exposure: Yes Second hand exposure: Yes Alcohol Alcohol Intake: current Alcohol intake frequency: holidays/special occasions only Alcohol type: beer and wine Substance Use Substance use: Rarely Substance use type: marijuana Details: alcohol: unknown. Marijuana: unknown Prental History History 3 Para Hx # Term Pregnancies 2 Multiple births Hx # Pregnancies Ectopic pregnancies AB induced Hx Number of Living Children AB spontaneous Vital Signs and Lab Results Vital Signs Most Recent Vital Signs in EMR: Most Recent Vital Signs Temp Pulse Resp BP Pulse Ox 36.5 C 108 H 18 102/79 99 07/14/25 10:16 07/14/25 10:16 07/14/25 10:16 07/14/25 10:16 07/14/25 10:16 Anesthesia Assessment and Plan Anesthesia History Personal History: No History of Anesthesia Complications Family History: No Family History of Anesthesia Complications Exercise Tolerance Exercise Tolerance: Metabolic Equivalents>4 Pertinent Negatives Pertinent Negatives: No Symptoms of GERD Cardiac & Pulmonary Exam Cardiac Exam: Normal S1/S2 Heart Sounds Pulmonary Exam: Clear Bilateral Breath Sounds Implantable Cardiac Device Does patient have a Pacemaker or an ICD?: No Airway Exam Known Difficult Airway: No Mallampati Class: 2 Mouth Opening: Normal (> 3cm) Thyromental Distance: Greater than 3 cm Neck Range of Motion: Full ROM Neck Circumference: Normal Teeth Condition: Normal Dentition ASA Classification ASA Score: ASA 2 Emergency Case?: No NPO Status NPO Status: NPO Clears >2 hours, Solids >8 hours Anesthesia Plan Resuscitation Status: Full Code Anesthesia Technique: General Anesthesia Airway Planned: Natural Airway Monitors Used: Standard Monitors
[2025-07-14 11:28] VITALS: BMI 23.6
[2025-07-14 12:17] VITALS: BP 101/72; PULSE 82; RESP 16; TEMP 36.1; O2SAT 97
--- NOTE | 2025-07-14 12:17 | W.PM.DSUDISC ---
Date of service: 07/14/25 Discharge Plan Disposition Patient Disposition: Home Condition: Good Discharge Details Reason For Visit: Personal history of polyps Attending Provider: Vida Ledesma Primary Care Provider: Roxy Calderon Home Meds and New Rx's Prescriptions: Continued diclofenac sodium [Arthritis Pain (diclofenac)] 1 % gel 4 g topical QID Qty: 100 3RF Rx Instructions: Apply to top of feet up to 4 times day a day if needed for pain sumatriptan succinate [Imitrex] 100 mg tablet 100 mg PO PRN Qty: 18 3RF Rx Instructions: max dose 100mg/day, not to exceed twice weekly tirzepatide (weight loss) 5 mg/0.5 mL pen injector 5 mg subcut QWEEK Qty: 2 3RF Discontinued bisacodyl 5 mg tablet,delayed release (DR/EC) 5 mg PO ONCE Qty: 4 0RF Rx Instructions: Per Colonoscopy bowel prep instructions polyethylene glycol 3350 17 gram/dose powder 238 g PO ONCE Qty: 238 0RF Rx Instructions: For Colonoscopy bowel prep, as directed by office Discharge Instructions Instructions: Diverticulosis Additional Instructions: Your colonoscopy went well today. There was no evidence of polyps or other abnormalities. You did have evidence of diverticulosis or outpouchings of the colon. Given your family history the recommendation would be to have another colonoscopy in 5 years. Please contact the surgery office if you have any questions or concerns. 1. If tolerated, consume a soft, low fiber diet for 1-2 days. 2[address] Do not drive, drink alcohol, operate machinery, make critical decisions, or do activities that require coordination or balance for 24 hours. 3. Because air was put into your colon during the procedure, expelling air from your rectum (passing gas or farting) is normal. 4. You may not have a bowel movement for 1-3 days because of the colonoscopy prep. This is normal. 5. Go directly to the emergency room if you notice any of the following: Develop chills (warm to touch), or if you have a thermometer and your temperature is above 101 Difficulty breathing or difficultly swallowing Persistent vomiting Severe abdominal pain, other than gas cramps Severe chest pain Black, tarry stools Any bleeding ? exceeding one tablespoon 6. Call your physician if the site where your intravenous was started becomes red, swollen, painful, and warm to touch. 7. Your physician has reviewed your pre-procedure medications. Please continue to take those medications as previously ordered. You will be given specific information/education regarding any changes to your medications before leaving. Stand Alone Forms: Portal Information Activity:: Activity as Tolerated Diet:: As Tolerated Discharge Orders Discharge Orders: Discharge Order (Routine); Ordered 07/14/25 Ordered By: Vida Ledesma
--- NOTE | 2025-07-14 12:20 | W.COLOREPORT ---
Date of service: 07/14/25 Time of Service: 12:20 Colonoscopy Report Date of procedure: 07/14/25 Pre-op diagnosis general: Personal history of polyps, family history of colon cancer Post-op diagnosis procedure note: same Procedure: Colonoscopy Surgeon: Vida Ledesma Anesthesia Type: General:No Airway Estimated blood loss (mL): 0 Pathology: none sent Complications: None Disposition: PACU Indications: Patient is a 60 yo female who presents for a colonoscopy due to personal history of polyps and family history of colon cancer. Prep: Miralax/Dulcolax Procedure Start Time: 11:48 Procedure End Time: 12:10 Retraction Time: 10 Findings: Evidence of scattered diverticulosis. Otherwise normal colonoscopy. Procedure Description: Informed consent was obtained. The patient was taken to the endoscopy suite and placed in the left lateral decubitus position. After adequate intravenous sedation, digital rectal exam was performed, which was normal. A colonoscope was inserted into the rectum and easily negotiated to the cecum. The ileocecal valve and appendiceal orifice were identified. The entire colonic mucosa was then carefully circumferentially inspected upon slow withdrawal of the scope. The entire colon appeared normal. In mostly the sigmoid colon and in some areas scattered throughout the colon, there was evidence of diverticulosis. Retroflexion in the rectum was unremarkable. The patient tolerated the procedure well with no complications. Postoperatively, the patient was transferred to the recovery room in stable condition. [facility] Bowel Prep [facility] Bowel Prep Right Colon: 3 Left Colon: 3 Transverse Colon: 3 Total Score: 9
[2025-07-14 12:45] VITALS: BP 103/80; PULSE 76; RESP 16; TEMP 36.1; O2SAT 99
--- NOTE | 2025-07-14 12:50 | W.ANESPOSTOP ---
Postoperative Evaluation Date, Time and Location Date Performed: 07/14/25 Time Performed: 12:50 Patient Location: Day Surgery Unit Vital Signs Most Recent Imported Vital Signs: Most Recent Vital Signs Temp Pulse Resp BP Pulse Ox 36.1 C L 76 16 103/80 99 07/14/25 12:45 07/14/25 12:45 07/14/25 12:45 07/14/25 12:45 07/14/25 12:45 Pain Score Most Recent Pain Score: Most Recent Pain Score Pain Level 0 07/14/25 12:45 Assessment Mental Status: Awake (Alert & Oriented to Patient Baseline) Airway and Respiratory Function: Patent airway with normal (patient baseline) respiratory exam Cardiovascular Function: Hemodynamically Stable Hydration Status: Adequately Hydrated Nausea & Vomiting: No Nausea or Vomiting Pain: Pt. Denies Any Pain Peripheral Nerve Block: Patient did not receive a nerve block
== END 2025-07-14 12:50 | disposition home or self-care (01) ==
PROVIDERS: PCP Nurse Practitioner Family; Visit Provider Student in an Organized Health Care Education/Training Program
PROC: 0DJD8ZZ Inspection of Lower Intestinal Tract, Via Natural or Artificial Opening Endoscopic (ICD-10-PCS; CPT 45378; principal; 2025-07-14 11:45)
DX: Z12.11 Encounter for screening for malignant neoplasm of colon (principal); Z80.0 Family history of malignant neoplasm of digestive organs; Z86.0100 Personal history of colon polyps, unspecified; K57.30 Diverticulosis of large intestine without perforation or abscess without bleeding
CPT/HCPCS: 45378; J2704